=== PATIENT | male | born 1970 | race Caucasian/White ===

== ENCOUNTER 2017-07-28 20:20 | Emergency (ER) | payer OTHER ==
--- NOTE | 2017-07-28 20:53 | EDM.PDOC ---
ED HPI GENERAL MEDICAL PROBLEM - General Chief Complaint: Upper Extremity Injury/Pain Stated Complaint: FALL/PAIN LT SHOULDER/NECK PAIN Time Seen by Provider: 07/28/17 20:41 - History of Present Illness INITIAL COMMENTS - FREE TEXT/NARRATIVE: HISTORY AND PHYSICAL: History of present illness: Patient is a 47-year-old male who presents after slipping on ice at one of our local hotels and landing onto his left shoulder neck and back although not passing out. He says he felt woozy and little nauseated after the event but since that time he has had no nausea or vomiting but does have left shoulder pain and left-sided neck and head pain. He has some ache in his lower back but is not that concerned about this and he has no neurosensory changes in his extremities no lower extremity complaints no abdominal pain and no pelvis pain. 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 Review of systems: As per history of present illness and below otherwise all systems reviewed and negative. Past medical history: As per history of present illness and as reviewed below otherwise noncontributory. Surgical history: As per history of present illness and as reviewed below otherwise noncontributory. Social history: No reported history of drug or alcohol abuse. Family history: As per history of present illness and as reviewed below otherwise noncontributory. Physical exam: Gen.: Well-developed well-nourished man who is nontoxic and vital signs were reviewed by me. He moves easily in the ED and ambulated into the ED without assistance HEENT: Atraumatic, normocephalic, pupils reactive, negative for conjunctival pallor or scleral icterus, mucous membranes moist, throat clear, neck supple, nontender, trachea midline. There are no palpable midline step-offs tenderness defects of the cervical spine but there is some diffuse trapezius and left paraspinal muscle spasm and discomfort on palpation. There is no scalp tenderness or defects or deformities appreciated. Lungs: Clear to auscultation, breath sounds equal bilaterally, chest nontender. Heart: S1S2, regular rate and rhythm no overt murmurs Abdomen: Soft, nondistended, nontender. NABS Pelvis: Deferred Genitourinary: Deferred. Rectal: Deferred. Extremities: Atraumatic, negative for cords or calf pain. Neurovascular unremarkable. Full range of motion of all extremities without defects or deficits. There is some mild muscular tenderness and scapular tenderness on the left with palpation without any evidence of any soft tissue injury such as ecchymosis erythema or skin break. Patient does not have any discrete tenderness with range of motion at the left shoulder. Neuro: Awake, alert, oriented. Cranial nerves II through XII unremarkable. Cerebellum unremarkable. Motor and sensory unremarkable throughout. Exam nonfocal. Back: There are no midline step-offs tenderness or defects of the thoracic or lumbar spine no posterior rib tenderness or posterior pelvis tenderness and no soft tissue injuries are visualized Diagnostics: CT scan of the head x-rays of C-spine and left shoulder Therapeutics: Ice pack, patient was offered Toradol and refuses Impression: Fall, left posterior shoulder contusion, mild concussion, cervical strain Definitive disposition and diagnosis as appropriate pending reevaluation and review of above. left shoulder Pain Score (Numeric/FACES): 5 - Related Data Allergies Allergy/AdvReac Type Severity Reaction Status Date / Time No Known Allergies Allergy Verified 07/28/17 20:40 Home Meds: Home Meds . [No Known Home Meds] 07/28/17 [History] Past Medical History HEENT History: Reports: None Cardiovascular History: Reports: None Respiratory History: Reports: None Gastrointestinal History: Reports: Other (See Below) Other Gastrointestinal History: Pyloric Stenosis Genitourinary History: Reports: None Musculoskeletal History: Reports: None Neurological History: Reports: None Psychiatric History: Reports: None Endocrine/Metabolic History: Reports: None Hematologic History: Reports: None Immunologic History: Reports: None Oncologic (Cancer) History: Reports: None Dermatologic History: Reports: None - Infectious Disease History Infectious Disease History: Reports: None - Past Surgical History Head Surgeries/Procedures: Reports: None Social & Family History - Family History Family Medical History: Noncontributory - Tobacco Use Smoking Status *Q: Never Smoker - Caffeine Use Caffeine Use: Reports: Coffee - Recreational Drug Use Recreational Drug Use: No Review of Systems - Review of Systems Review Of Systems: ROS reveals no pertinent complaints other than HPI. ED EXAM, GENERAL - Physical Exam Exam: See Below (See dictation) Course - Vital Signs Last Recorded V/S: Last Vital Signs Temp 36.8 C 07/28/17 20:40 Pulse 90 07/28/17 20:40 Resp 18 07/28/17 20:40 BP 136/75 07/28/17 20:40 Pulse Ox 98 07/28/17 20:40 - Orders/Labs/Meds Orders: Active Orders 24 hr Category Date Time Status Cervical Spine 2V or 3V [CR] Stat Exams 07/28/17 20:47 Taken Head wo Cont [CT] Stat Exams 07/28/17 20:47 Taken Shoulder Comp Lt [CR] Stat Exams 07/28/17 20:47 Taken Departure - Departure Time of Disposition: 21:41 Disposition: Home, Self-Care 01 Condition: Good Clinical Impression: Fall Qualifiers: Encounter type: initial encounter Qualified Code(s): W19.XXXA - Unspecified fall, initial encounter Shoulder contusion Qualifiers: Encounter type: initial encounter Laterality: left Qualified Code(s): S40.012A - Contusion of left shoulder, initial encounter Neck contusion Qualifiers: Encounter type: initial encounter Qualified Code(s): S10.93XA - Contusion of unspecified part of neck, initial encounter - Discharge Information Referrals: PCP,None [Primary Care Provider] - Forms: ED Department Discharge Additional Instructions: The following information is given to patients seen in the emergency department who are being discharged to home. This information is to outline your options for follow-up care. We provide all patients seen in our emergency department with a follow-up referral. The need for follow-up, as well as the timing and circumstances, are variable depending upon the specifics of your emergency department visit. If you don't have a primary care physician on staff, we will provide you with a referral. We always advise you to contact your personal physician following an emergency department visit to inform them of the circumstance of the visit and for follow-up with them and/or the need for any referrals to a consulting specialist. The emergency department will also refer you to a specialist when appropriate. This referral assures that you have the opportunity for followup care with a specialist. All of these measure are taken in an effort to provide you with optimal care, which includes your followup. Under all circumstances we always encourage you to contact your private physician who remains a resource for coordinating your care. When calling for followup care, please make the office aware that this follow-up is from your recent emergency room visit. If for any reason you are refused follow-up, please contact the [facility] emergency department at and ask to speak to the emergency department charge nurse. WOJCIECH [facility] Primary care- Internal Medicine and Family [place] [id number] [place] [id number] Use ice to areas of discomfort the next 24 hours and then switch to heat. Use [id number] ibuprofen/Motrin for pain and try to stretch and range of motion the areas to keep the muscles loose. Return to ER as needed and as discussed and follow-up with one of our clinic providers or your provider at home in the next few days for reevaluation further care - My Orders Last 24 Hours: My Active Orders 07/28/17 20:47 Cervical Spine 2V or 3V [CR] Stat Head wo Cont [CT] Stat Shoulder Comp Lt [CR] Stat - Assessment/Plan Last 24 Hours: My Active Orders 07/28/17 20:47 Cervical Spine 2V or 3V [CR] Stat Head wo Cont [CT] Stat Shoulder Comp Lt [CR] Stat
--- NOTE | 2017-07-29 10:04 | CT ---
EXAM DATE: 07/28/17 PATIENT'S AGE: 47 Patient: KRISSY SIMS Facility: [place], [place] Site . Site : 1970 Study: CT Head [id number]/7/2018 9:02:00 PM Ordering Physician: Sharon Bess Final Report: INDICATION: Fall TECHNIQUE: CT head without contrast. COMPARISON: None FINDINGS: CSF spaces: Within normal limits for age. Brain parenchyma: The de jesus-white differentiation is normal. No sign of mass, hemorrhage, or midline shift. Skull base and calvarium: The visualized paranasal sinuses and mastoid air cells demonstrate no acute or significant findings. The visualized orbits are grossly unremarkable. No skull fractures. IMPRESSION: Unremarkable noncontrast head CT. Dictated by Michael Meier MD @ 07/28/2017 9:08:23 PM Dictated by: Michael Meier MD @ 07/28/2017 21:08:29 (Electronic Signature) Report Signed by Proxy. KARISSA
--- NOTE | 2017-07-29 10:10 | CR ---
EXAM DATE: 07/28/17 PATIENT'S AGE: 47 Patient: KRISSY SIMS Facility: [place], [place] Site . Site : 1970 Study: XRay Shoulder Left [id number]/7/2018 9:21:33 PM Ordering Physician: Sharon Bess Final Report: INDICATION: Fall. TECHNIQUE: Four views of the left shoulder. COMPARISON: None. IMPRESSION: No glenohumeral joint subluxation or dislocation. The acromioclavicular joint is normal. There are a few subtle curvilinear calcifications seen adjacent to the coracoid process. In the absence of widening of the coracoclavicular space, these are unlikely to be related to an acute avulsion fracture of the coracoclavicular ligament attachment. No other significant findings. Dictated by Trell Francisco MD @ 07/28/2017 9:25:44 PM Dictated by: Trell Francisco MD @ 07/28/2017 21:25:51 (Electronic Signature) Report Signed by Proxy. KARISSA
--- NOTE | 2017-07-29 10:11 | CR ---
EXAM DATE: 07/28/17 PATIENT'S AGE: 47 Patient: KRISSY SIMS Facility: [place], [place] Site . Site : 1970 Study: XRay Spine Cervical [id number]/7/2018 9:21:50 PM Ordering Physician: Sharon Bess Final Report: INDICATION: Fall. TECHNIQUE: Four views of the cervical spine. COMPARISON: None. IMPRESSION: No prevertebral soft tissue swelling. The curvature and alignment of the cervical spine are within normal limits. No fracture is identified. There is evidence of mild disc degeneration at C4-5 and C5-6, with mild disc space narrowing and endplate and uncovertebral joint spurring. Facet joints in general appear unremarkable. Dictated by Trell Francisco MD @ 07/28/2017 9:27:32 PM Dictated by: Trell Francisco MD @ 07/28/2017 21:27:38 (Electronic Signature) Report Signed by Proxy. KARISSA
== END 2017-07-28 21:58 | disposition home or self-care (01) ==
LOC: MW.ED 20:20
DX: S06.0X9A Concussion with loss of consciousness of unspecified duration, initial encounter (principal); S16.1XXA Strain of muscle, fascia and tendon at neck level, initial encounter; S40.012A Contusion of left shoulder, initial encounter; W00.9XXA Unspecified fall due to ice and snow, initial encounter; Y92.59 Other trade areas as the place of occurrence of the external cause
CPT/HCPCS: 70450; 70450-26; 72040; 72040-26; 73030-26-LT; 73030-LT; 99284; 99284-25